=== PATIENT | female | born 1950 | race Asian ===

== ENCOUNTER 2019-10-11 15:43 | Inpatient (IN) | payer OTHER ==
[~2019-10-11] VITALS: Ht 167.6 cm; Wt 81.6 kg
[2019-10-11 15:51] VITALS: BP 127/64
[2019-10-11] MEDS ORDERED: ADENOSINE 6 MG/2 ML VIAL IVP ONE ×5 (15:57→16:15)
--- NOTE | 2019-10-11 15:59 | NUR ---
BIBA C/O PALPITATIONS AND SOB SINCE 1230PM TODAY. PT REPORTS HAVING COLD S/S AND COUGH FOR ONE WEEK, AND STARTED HAVING PALPITATIONS TODAY AFTER TAKING TRADITIONAL AZERI MEDICINE FOR COUGH. PT TOOK 12.5 METOPROLOL W/O ANY RELIEF. PT HAS FEVER 100.1 F UPON TRIAGE. HR 167. LUNGS CLEAR BILATERALLY. RR EVEN AND UNLABORED. PT ALERT AND AWAKE. LALY CASTRO TRANSLATED-PT SPEAKS MANDARIN
[2019-10-11] MEDS ORDERED: DILTIAZEM 25 MG/5 ML VIAL IVP ONE ×2 (16:00→16:06)
[2019-10-11] MEDS ORDERED: NACL 0.9% 1,000 ML IV ONE ×2 (16:00→16:30)
--- NOTE | 2019-10-11 16:00 | NUR ---
PER DR PLATA, GIVE ADENOSINE IN PTS R HAND INSTEAD OF L AC BECAUSE AC HAS IV TUBING
--- NOTE | 2019-10-11 16:01 | NUR ---
IST DOSE OF ADENOSINE 6 MG ADMINISTERED
--- NOTE | 2019-10-11 16:04 | NUR ---
2ND DOSE OF ADENOSINE 12 MG ADMINISTERED
--- NOTE | 2019-10-11 16:10 | NUR ---
HR 160S
--- NOTE | 2019-10-11 16:32 | NUR ---
CONNIE ADMINISTERED IVP WITH DR PLATA AT BEDSIDE
--- NOTE | 2019-10-11 16:34 | NUR ---
HR 87
--- NOTE | 2019-10-11 17:00 | NUR ---
PT ASSISTED ONTO BED ANN
--- NOTE | 2019-10-11 17:19 | NUR ---
HR 65, PT ALERT AND AWAKE
--- NOTE | 2019-10-11 18:04 | NUR ---
VS STABLE. PT AFEBRILE
--- NOTE | 2019-10-11 18:06 | NUR ---
PER DR PLATA, PT OKAY TO AMBULATE TO RESTROOM. PT AMBULATES WITH STEADY GAIT
--- NOTE | 2019-10-11 18:12 | NUR ---
LAB AT BEDSIDE
[2019-10-11 18:35] LABS: BASOPHILS % (AUTO) 0.1 % (0.0-2.0); EOSINOPHILS % (AUTO) 0.5 % (0.0-4.0); HEMATOCRIT 44.3 % (36-48); HEMOGLOBIN 14.6 g/dL (12.0-16.0); LYMPHOCYTES # (AUTO) 1.4 K/uL (2.5-16.5); LYMPHOCYTES % (AUTO) 19.1 % (20.5-51.1); MEAN CORPUSCULAR HEMOGLOBIN 31 pg (27-31); MEAN CORPUSCULAR HGB CONC 33 g/dL (33-37); MEAN CORPUSCULAR VOLUME 94.2 fL (80-94); MONOCYTES # (AUTO) 0.3 K/uL (0.8-1.0); MONOCYTES % (AUTO) 4.3 % (1.7-9.3); NEUTROPHILS # (AUTO) 5.7 K/uL (1.8-7.7); PLATELET COUNT (AUTO) 214 K/uL (140-450); RED BLOOD CELL COUNT(AUTO) 4.71 MIL/uL (4.20-5.40); RED CELL DISTRIBUTION WIDTH 11.9 % (11.6-13.7); WHITE BLOOD COUNT (AUTO) 7.5 K/uL (4.8-10.8)
[2019-10-11 18:48] LABS: ANION GAP 14.2 (8-16); CARBON DIOXIDE 27.6 mmol/L (21-32); CREATININE 0.7 mg/dL (0.6-1.3); POTASSIUM 3.8 mmol/L (3.5-5.1)
[2019-10-11 18:53] LABS: ALBUMIN 3.2 g/dL (3.4-5.0); TOTAL BILIRUBIN 0.3 mg/dL (0.0-1.0)
--- NOTE | 2019-10-11 19:12 | NUR ---
REPORT RECEIVED FROM MATTHEW MINA.
--- NOTE | 2019-10-11 19:12 | NUR ---
REPORT GIVEN TO ROOPA CASTRO, LAB RESULTS JUST RETURNED
--- NOTE | 2019-10-11 19:26 | NUR ---
PATIENT IS SITTING IN BED QUEITLY. WILL CONTINUE TO MONITOR.
--- NOTE | 2019-10-11 19:29 | NUR ---
PATIENT IS SITTING IN BED QUEITLY. WILL CONTINUE TO MONITOR. VSS.
--- NOTE | 2019-10-11 21:03 | NUR ---
LAB AT BEDSIDE.
--- NOTE | 2019-10-11 21:15 | NUR ---
PATIENT IS RESTING IN BED WITH EYES CLOSED. NO PAIN NOTED. WILL CONTINUE TO MONITOR.
--- NOTE | 2019-10-11 23:35 | NUR ---
PATIENT AMBULATED TO RESTROOM.
--- NOTE | 2019-10-11 23:46 | NUR ---
Patient will be admitted to care of . Admited to ICU; TELE HOLD. Will go to room 1. Belongings list completed. Report to MATTHEW LUIS .
--- NOTE | 2019-10-11 23:50 | NUR ---
PATIENT CAME TO ICU TELE STATUS. WALKED FROM [facility] TO ICU BED 1 WITHOUT ANY CONCERNS OR INJURIES. PATIENT SPEAKS MAINLY MANDARIN BUT ABLE TO UNDERSTAND AND SPEAK [place] TO UNDERSTAND ADMISSION QUESTIONS AT THIS TIME. PATIENT HAS RIGHT HAND 20G AND LEFT AC 18G BOTH FLUSHED AND PATENT AT THIS TIME. LEFT AC LINE PLACED WITH IVF NS RUNNING AT 70ML/HR PER PAM ORDERS. PATIENT HAS MILD INTERMITT. COUGH THAT IS NON PRODUCTIVE AT THIS TIME. GIVEN TISSUES IF NEEDED. PATIENT ON ROOM AIR. PERRLA NOTED. PATIENT HR IN 50S MD SINGH AWARE. AND LUNG SOUNDS CLEAR. RESPIRATIONS SYMMETRICAL BILATERALLY AND UNLABORED. PATIENT BOWEL SOUNDS ACTIVE. STATES IN ALL 4 QUAD. HER DIET AT HOME STATES " I EAT WHATEVER" .SKIN INTACT. PATIENT WANTED PURSE AT BEDSIDE. BARRIGA/BLACK PURSE. . WITH BELONGINGS IN IT. PATIENT WANTED HER EYE GLASSES AND CELL PHONE AT BEDSIDE AT THIS TIME. TIRED BELONGINGS BAG WITH PURSE IN IT AT BEDSIDE IN A KNOT. PLACED IN BEDSIDE CLOSET. BARRIGA JACKET ALSO PLACED IN CLOSET. PATIENT WANTED TO KEEP SOCKS AND PANTS ON "IM COLD" GIVEN 2 BLANKETS FOR COMFORT. AAOX4. STATES" MY IS IN THE HOSPITAL TOO". REFUSED ME TO CALL ANYONE. REFUSED VACCINES AT THIS TIME. "ILL DO LATER" PATIENT HAS CELL PHONE TO CONTACT HERSELF AT THIS TIME. RED SLIP IN SHOES NOTED AT BEDSIDE. ABLE TO MAKE NEEDS KNOWN. OBEYS COMMANDS. ASSISTED PATIENT TO BEDSIDE COMMODE VIA STANDBY ASSISTANCE. PATIENT URINATED IN BEDSIDE COMMODE WITH YELLOW NORMAL SMELLING URINE. NO OTHER SEDIMENT NOTED. ASSESSMENT QUESTIONS ANSWERED WITHOUT ANY CONCERNS OR QUESTIONS. CALL LIGHT WITHIN REACH. PATIENT PLACED ON CARDIAC DIET PER FRANCISCO. DENIES DIZZY,DENIES PAIN, DENIES BURROUGHS, DENIES BLURRY VISION. DENIES NUMBNESS. AWARE OF TROPONIN ELEVATED: AWARE OF HR IN 50S "THATS OK": PAGED FRANCISCO AT [phone]. [phone] CALLED BACK. TO:PATIENT STATES WILL NOT ORDER HOME MEDS OR MEDICATIONS AT THIS TIME. IVF NS 70 ML/HR. CARDIAC DIET, TROPONIN LAB ORDER FOR 0700, TYLENOL 650 MG PO Q4H FOR FEVER OR PAIN, ZOFRAN IVP Q4H PRN NAUSEA. CALL LIGHT WITHIN REACH. WILL CONTINUE TO MONITOR AT THIS TIME. VSS NO SOB OR DISTRESS NOTED.
[2019-10-12] VITALS: BP_SYST 125; BP_SYST 138; BP_DIAS 63; BP_DIAS 78
[2019-10-12] MEDS ORDERED: NACL 0.9% 1,000 ML IV SCH (00:20)
[2019-10-12] MEDS ORDERED: ONDANSETRON 4 MG/2 ML VIAL IVP PRN (00:20)
[2019-10-12] MEDS ORDERED: ACETAMINOPHEN 325 MG TAB PO PRN (00:20)
--- NOTE | 2019-10-12 02:09 | NUR ---
PATIENT SLEEPING ON SIDE AT THIS TIME. CELL PHONE AND GLASSES AT BEDSIDE. GIVEN WATER IF NEEDED. MRSA SWAB CULTURE TAKEN BY CHARGE NURSE AND TAKEN TO HOSPITAL. WILL CONTINUE TO MONITOR. CALL LIGHT WITHIN REACH. VSS.
[2019-10-12 04:00] VITALS: BP 122/55
--- NOTE | 2019-10-12 04:02 | NUR ---
WHEN PATIENT ASKED TO CONFIRM HER CODE STATUS. WHEN ASKED IF SHE WANTS FULL CODE, IF SHE WANTS ALL MEASURES PROVIDED IF THINGS WERE TO GET WORSE AND COULDN'T MAKE HER OWN DECISIONS. RESPONSE "ABSOLUTELY" WHEN ASKED IF SHE WOULD LIKE CHEST COMPRESSIONS AND MIMICKED CHEST COMPRESSIONS SHE SMILED AND SAID "ABSOLUTELY". WHEN ASKED IF WANTED TO BE SHOCKED AND MIMICKED SHOCK SHE STATED "ABSOLUTELY" WHEN ASKED IF WANTED MEDICATION MEASURES. PATIENT STATES "ABBSSOOLLTELLY" WITH A BIG SMILE. STATES SHE VERBALLY UNDERSTANDS THIS DECISION. AAOX4. ABLE TO MAKE NEEDS KNOWN. ABLE TO OBEY COMMANDS. WILL CONTINUE TO MONITOR.
--- NOTE | 2019-10-12 04:40 | NUR ---
PATIENT CALLED FOR ASSISTANCE TO USE BEDSIDE COMMODE. AAOX4. ABLE TO STAND WITH STEADY GAIT. TRANSFERRED SELF WITH STANDBY ASSISTANCE "I CAN DO MYSELF" PATIENT STATES, " I HAVE TO POOP" PATIENT GIVEN TISSUE AND WIPES WHEN READY. PATIENT FINISHED AND TRANSFERRED SELF BACK TO BED WITHOUT INJURIES. NOTIFIED PATIENT OF ROOM TRANSFER AROUND 0600. WILL CONTINUE TO MONITOR. VSS. NO SOB OR DISTRESS NEEDED. PATIENT HAD BROWN FORMED SOFT STOOL IN BEDPAN. DENIES PAIN. WILL CONTINUE TO MONITOR.
--- NOTE | 2019-10-12 05:39 | NUR ---
PATIENT CALLED FOR ASSISTANCE TO THE BEDSIDE COMMODE AGAIN. MOVED BY SELF WITH STANDBY ASSISTANCE. NO INJURIES NOTED. YELLOW URINE NOTED IN BEDSIDE COMMODE ON CHUX. NO ABNORMAL SMELLS. DENIES PAIN. VSS. NO SOB OR DISTRESS NOTED. WILL CONTINUE TO MONITOR AT THIS TIME. PATIENT DENIES NEEDING BED BATH AT THIS TIME AND BEDDING IS STILL NEW AT THIS TIME WITH NO DIRTY SPOTS NOTED. "I WANT TO REST STILL" WILL ENDORSE TO DAY SHIFT.
--- NOTE | 2019-10-12 06:00 | NUR ---
TRANSFERRED PATIENT TO [facility] FLOOR VIA W/C WITHOUT INJURY. PATIENT AAOX4. ASSISTED TO BED. PATIENT GOT CELL TILE DITCHER OUT OF PURSE AND PLUGGED IT IN HER SELF. ORIENTED HER TO ROOM. STATES "IM FINE" CONNECTED IVF. PATIENT SHOWING NO SOB OR DISTRESS NOTED AT THIS TIME. WILL CONTINUE TO MONITOR.
--- NOTE | 2019-10-12 06:37 | NUR ---
PATIENT CHECKED ON BY NURSE. PATIENT SLEEPING IN BED. NO SOB OR DISTRESS NOTED. BED IN LOWEST POSITION. CALL LIGHT BY BED. ON TELE MONITOR. STABLE AT THIS TIME. WILL ENDORSE TO AM SHIFT. FLACC 0.
--- NOTE | 2019-10-12 07:28 | NUR ---
BEDSIDE REPORT RECEIVED FROM LEAFLET OR NEWSPAPER DELIVERER NURSE, PT AWAKE ALERT, RESP EVEN UNLABORED, SKIN WARM DRY COLOR WNL, PT DENIES PAIN OR DISCOMFORT, POC REVIEWED, ALL SAFETY MEASURES IN PLACE, WILL CONTINUE TO MONITOR.
[2019-10-12 08:00] VITALS: BP 138/69
--- NOTE | 2019-10-12 08:29 | NUR ---
PATIENT HAS BEEN SCREENED AND CATEGORIZED MODERATE NUTRITION RISK. PATIENT WILL BE SEEN WITHIN 3-5 DAYS OF ADMISSION. 10/14/19 10/16/[address]
--- NOTE | 2019-10-12 08:50 | NUR ---
PT UP TO BATHROOM WITHOUT ASSIST, AMBULATES WITH STAEDY GAIT.
[2019-10-12 12:00] VITALS: BP 128/68
[2019-10-12] MEDS ORDERED: METO25TE2 PO (12:21)
[2019-10-12] MEDS ORDERED: ASPI-1718 PO (12:22)
--- NOTE | 2019-10-12 12:40 | NUR ---
DISCHARGE INSTRUCTION AND RX INFO GIVEN AND EXPLAINED TO PT, PT DECLINED USE OF SHAFT MECHANIC PHONE, PT STATES "NO NEED", PT VERBALIZED FULL UNDERSTANDING, IV DC'D, CATH TIP INTACT X2, BLEEDING CONTROLLED, PT FABBY WELL, PT UP AMBULATES WITH STEADY GAIT, DENIES CHEST PAIN OR DISCOMFORT, DC HOME NOW.
--- NOTE | 2019-10-12 13:10 | NUR ---
DR VELAZQUEZ AT BEDSIDE WITH DR CRUZ Addendum: 10/12/19 at 1313 by Jennifer Valdez RN DISREGARD ABOVE NOTE
== END 2019-10-12 12:40 | disposition home or self-care (01) | DRG 310 ==
LOC: MED 15:43 → MIC 23:15 → MTU 10-12 06:10
PROVIDERS: ADMIT Internal Medicine Pulmonary Disease; ATTEND Internal Medicine Pulmonary Disease
DX: I47.1 Supraventricular tachycardia (principal)
CPT/HCPCS: 36415; 71045; 80053; 84484; 85025; 87081; 93005; 96361; 96374; 96375; 99291; J0153; J3490; J7030; Q0092